=== PATIENT | male | born 1995 | race Caucasian/White ===

== ENCOUNTER 2020-10-17 10:56 | Outpatient (CLI) | payer BC, SELFPAY ==
--- NOTE | ~2020-10-17 | XR_ITS ---
EXAMINATION: XR TMJ BI DATE: 10/17/2020 11:19 INDICATION: Unspecified temporomandibular joint disorder. TECHNIQUE: Open and closed mouth views of each temporomandibular joint and an anteroposterior view of the temporomandibular joints were obtained for a total of 5 views. COMPARISON: None. FINDINGS: The mandibular condyles are normal in morphology. There is normal anterior translation of t he mandibular condyles in the open-mouth position. IMPRESSION: 1. Normal temporomandibular joints. Reviewed, dictated and finalized at location A.
== END 2020-10-17 10:57 | disposition home or self-care (01) ==
PROVIDERS: PCP Physician Assistant; Visit Provider Physician Assistant
DX: M26.609 Unspecified temporomandibular joint disorder, unspecified side (principal)
CPT/HCPCS: 70330